=== PATIENT | female | born 1970 | race Asian ===

== ENCOUNTER 2019-01-13 05:30 | Inpatient (IN) | payer SELFPAY ==
[~2019-01-13] VITALS: Ht 165.1 cm; Wt 63.5 kg
[2019-01-13 05:30] VITALS: BP 160/97
--- NOTE | 2019-01-13 05:30 | NUR ---
ED Nurse Note: pt wisam ra 26 per ems pt was on her driveway showing signs of difficulty breathing. on route pt was given albuterol. ermd at bedside, rt at bedside. pt placed on bipap. pt placed on furniture and bedding inspector, placed in gown, bed at lowest position x 2 siderails
--- NOTE | 2019-01-13 05:35 | NUR ---
ED Nurse Note: xray at bedside
--- NOTE | 2019-01-13 05:40 | NUR ---
ED Nurse Note: xray complete
--- NOTE | 2019-01-13 05:42 | Emergency Room Report ---
History of Present Illness General Chief Complaint: Dyspnea/Respdistress Source: Patient, EMS Present Illness HPI 48-year-old female history of asthma history limited secondary to patient's medical condition, collateral history provided by EMS, patient presents with acute shortness of breath that started just prior to arrival she has a history of asthma, unknown aggravating or alleviating factors, patient takes albuterol at home, unknown if she was using at home, severity is severe, Allergies: Coded Allergies: No Known Allergies (Unverified , 01/13/19) Patient History Past Medical History: see triage record Reviewed Nursing Documentation: PMH: Agreed; PSxH: Agreed Nursing Documentation-PMH Past Medical History: No History, Except For Hx Asthma: Yes Review of Systems All Other Systems: limited - acute shortness of breath Physical Exam Vital Signs Date Time Temp Pulse Resp B/P (MAP) Pulse Ox O2 Delivery O2 Flow Rate FiO2 01/13/19 05:28 97.7 97 30 160/72 (101) 98 Room Air Sp02 EP Interpretation: reviewed, normal General Appearance: alert, moderate distress Head: normocephalic, atraumatic Eyes: bilateral eye PERRL, bilateral eye EOMI ENT: uvula midline, moist mucus membranes Neck: supple, thyroid normal, supple/symm/no masses Respiratory: respiratory distress, accessory muscle use, wheezing - severe Cardiovascular #1: normal peripheral pulses, regular rate, rhythm, no edema, no gallop, no murmur Gastrointestinal: non tender, soft, no guarding, no rebound Musculoskeletal: normal inspection Neurologic: alert, oriented x3 Psychiatric: mood/affect normal Skin: no rash, warm/dry Procedures Critical Care Time Critical Care Time Given the critical condition in which the patient arrived, the patient was immediately assessed by myself and the nurse, and cardiac monitoring initiated due to the potential for rapid decompensation of the patient's clinical condition. During the course of the patient's stay, I spent a considerable amount of time at the bedside performing serial re-evaluations of the patient's hemodynamic and clinical status because of the recognized potential threat to life or limb in this condition. I then had a chance to review not only all of the available current laboratory and radiographic studies obtained today, but I also reviewed old records available to me at the time. Additionally, any ancillary information available including wood tank erector records were reviewed. Sequential vital signs were obtained. Critical Care time of 32 minutes was performed exclusive of billable procedures. Patient with acute respiratory distress. Medical Decision Making Diagnostic Impression: Primary Impression: Respiratory distress Additional Impression: COPD with exacerbation ER Course 48-year-old female history of COPD, history of smoking presents with acute shortness of breath, patient unable to speak full sentences using accessory muscles, BiPAP immediately started for acute respiratory distress Duo nebs, steroids, fluids Ceftriaxone azithromycin started for possible pneumonia given sputum production over the past day Reevaluation 6:13 AM, patient slowly improving with BiPAP, will reassess and ABG Reeval 6:35 AM, patient more comfortable Patient admitted to Dr. Dickens Laboratory Tests Test 01/13/19 05:25 01/13/19 06:24 01/13/19 06:40 White Blood Count 15.2 K/UL (4.8-10.8) H Red Blood Count 5.17 M/UL (4.20-5.40) Hemoglobin 15.7 G/DL (12.0-16.0) Hematocrit 46.1 % (37.0-47.0) Mean Corpuscular Volume 89 FL (80-99) Mean Corpuscular Hemoglobin 30.3 PG (27.0-31.0) Mean Corpuscular Hemoglobin Concent 34.0 G/DL (32.0-36.0) Red Cell Distribution Width 11.3 % (11.6-14.8) L Platelet Count 277 K/UL (150-450) Mean Platelet Volume 6.3 FL (6.5-10.1) L Neutrophils (%) (Auto) 81.5 % (45.0-75.0) H Lymphocytes (%) (Auto) 12.4 % (20.0-45.0) L Monocytes (%) (Auto) 4.3 % (1.0-10.0) Eosinophils (%) (Auto) 1.3 % (0.0-3.0) Basophils (%) (Auto) 0.3 % (0.0-2.0) Sodium Level 139 MMOL/L (136-145) Potassium Level 3.6 MMOL/L (3.5-5.1) Chloride Level 104 MMOL/L (98-107) Carbon Dioxide Level 23 MMOL/L (21-32) Anion Gap 12 mmol/L (5-15) Blood Urea Nitrogen 9 mg/dL (7-18) Creatinine 0.5 MG/DL (0.55-1.30) L Estimate Glomerular Filtration Rate > 60 mL/min (>60) Glucose Level 147 MG/DL (74-106) H Calcium Level 8.4 MG/DL (8.5-10.1) L Total Bilirubin 0.5 MG/DL (0.2-1.0) Aspartate Amino Transferase (AST) 22 U/L (15-37) Alanine Aminotransferase (ALT) 23 U/L (12-78) Alkaline Phosphatase 80 U/L (46-116) Troponin I 0.000 ng/mL (0.000-0.056) Pro-B-Type Natriuretic Peptide 72 pg/mL (0-125) Total Protein 7.7 G/DL (6.4-8.2) Albumin 4.0 G/DL (3.4-5.0) Globulin 3.7 g/dL Albumin/Globulin Ratio 1.1 (1.0-2.7) Arterial Blood pH 7.267 (7.350-7.450) Arterial Blood Partial Pressure CO2 44.0 mmHg (35.0-45.0) Arterial Blood Partial Pressure O2 < 45.3 mmHg (75.0-100.0) Arterial Blood HCO3 19.6 mmol/L (22.0-26.0) L Arterial Blood Oxygen Saturation 60.1 % (95-100) *L Arterial Blood Base Excess -7.1 (-2-2) L Abdirashid Test Positive Urine Color Pale yellow Urine Appearance Clear Urine pH 6 (4.5-8.0) Urine Specific [place] 1.020 (1.005-1.035) Urine Protein 4+ (NEGATIVE) H Urine Glucose (UA) 1+ (NEGATIVE) H Urine Ketones 3+ (NEGATIVE) H Urine Blood 4+ (NEGATIVE) H Urine Nitrite Negative (NEGATIVE) Urine Bilirubin Negative (NEGATIVE) Urine Urobilinogen Normal MG/DL (0.0-1.0) Urine Leukocyte Esterase Negative (NEGATIVE) Urine RBC 10-15 /HPF (0 - 2) H Urine WBC 0-2 /HPF (0 - 2) Urine Squamous Epithelial Cells Moderate /LPF (NONE/OCC) H Urine Bacteria Few /HPF (NONE) EKG Diagnostic Results EKG Time: 05:50 EP Interpretation: NSR rate 86 normal axis, no acute st elevations, premature atrial complex Rate: normal Rhythm: NSR ST Segments: no acute changes ASA given to the pt in ED: No Rhythm Strip Diag. Results Rhythm Strip Time: 05:55 EP Interpretation: yes Rate: 84 Rhythm: NSR, other - premature atrial complexes noted Chest X-Ray Diagnostic Results Chest X-Ray Diagnostic Results : Chest X-Ray Ordered: Yes # of Views/Limited/Complete: 1 View Indication: Shortness of Breath EP Interpretation: Yes Interpretation: no consolidation, no effusion, no pneumothorax, no acute cardiopulmonary disease Impression: No acute disease Electronically Signed by: Georgi Solorzano MD Last Vital Signs Date Time Temp Pulse Resp B/P (MAP) Pulse Ox O2 Delivery O2 Flow Rate FiO2 01/13/19 05:28 97.7 97 30 160/72 (101) 98 Room Air Disposition: ADMITTED INPATIENT Condition: Stable Georgi Solorzano MD Jan 13, 2019 05:42
[2019-01-13] MEDS ORDERED: Solu-MEDROL 125mg Inj IVP ONE (05:45)
--- NOTE | 2019-01-13 05:45 | NUR ---
ED Nurse Note: RT at bedside
[2019-01-13] MEDS: Albuterol ud Inhalation HHN SCH ×6 (05:53→06:50)
[2019-01-13] MEDS: Ipratropium 0.02% Inh Soln 2.5ml UD HHN SCH ×6 (05:53→06:50)
[2019-01-13 05:55] LABS: BASOPHILS % (AUTO) 0.3 % (0.0-2.0); EOSINOPHILS % (AUTO) 1.3 % (0.0-3.0); HEMATOCRIT 46.1 % (37.0-47.0); HEMOGLOBIN 15.7 G/DL (12.0-16.0); LYMPHOCYTES % (AUTO) 12.4 % (20.0-45.0); MEAN CORPUSCULAR VOLUME 89 FL (80-99); MONOCYTES % (AUTO) 4.3 % (1.0-10.0); NEUTROPHILS % (AUTO) 81.5 % (45.0-75.0); PLATELET COUNT 277 K/UL (150-450); RED BLOOD COUNT 5.17 M/UL (4.20-5.40); RED CELL DISTRIBUTION WIDTH 11.3 % (11.6-14.8); WHITE BLOOD COUNT 15.2 K/UL (4.8-10.8)
[2019-01-13] MEDS ORDERED: Azithromycin 500 MG in NS 275 ML IV ONE (06:00)
[2019-01-13] MEDS ORDERED: cefTRIAXone 1 GM in NS 55 ML IVPB ONE (06:00)
[2019-01-13 06:22] LABS: ANION GAP 12 mmol/L (5-15); BLOOD UREA NITROGEN 9 mg/dL (7-18); CALCIUM 8.4 MG/DL (8.5-10.1); CARBON DIOXIDE 23 MMOL/L (21-32); CHLORIDE 104 MMOL/L (98-107); CREATININE 0.5 MG/DL (0.55-1.30); POTASSIUM 3.6 MMOL/L (3.5-5.1); SODIUM 139 MMOL/L (136-145)
[2019-01-13 06:33] LABS: ALANINE AMINOTRANSFERASE 23 U/L (12-78); ALBUMIN/GLOBULIN RATIO 1.1 (1.0-2.7); ALKALINE PHOSPHATASE 80 U/L (46-116); ASPARTATE AMINO TRANSFERASE 22 U/L (15-37); BILIRUBIN,TOTAL 0.5 MG/DL (0.2-1.0)
[2019-01-13 06:55] LABS: APPEARANCE,URINE CLEAR; BILIRUBIN, URINE NEGATIVE (NEGATIVE); COLOR,URINE PALE YELLOW; GLUCOSE, URINE (UA) 1+ (NEGATIVE); KETONES,URINE 3+ (NEGATIVE); LEUKOCYTE ESTERASE ,URINE NEGATIVE (NEGATIVE); NITRITE,URINE NEGATIVE (NEGATIVE); PH,URINE 6 (4.5-8.0); PROTEIN,URINE 4+ (NEGATIVE); UROBILINOGEN,URINE NORMAL MG/DL (0.0-1.0)
--- NOTE | 2019-01-13 07:12 | NUR ---
HAND-OFF: Report given to KAVITHA Griffiths.
--- NOTE | 2019-01-13 07:13 | NUR ---
ED Nurse Note: received patient from Jazlyn Mas, vitals stable.
[2019-01-13 07:20] VITALS: BP 120/78
--- NOTE | 2019-01-13 08:21 | Diagnostic Imaging Report ---
EXAM: XR Chest, 1 View CLINICAL HISTORY: SOB TECHNIQUE: Frontal view of the chest. COMPARISON: No relevant prior studies available. FINDINGS: Lungs: Unremarkable. No consolidation. Pleural space: Unremarkable. No pneumothorax. Heart: Unremarkable. No cardiomegaly. Mediastinum: Unremarkable. Bones/joints: Unremarkable. Upper abdomen: Gassy stomach or bowel in the upper abdomen. IMPRESSION: 1. No acute cardiothoracic process. 2. Gassy stomach or bowel in the upper abdomen.
[2019-01-13] MEDS ORDERED: UNOBMED (08:23)
--- NOTE | 2019-01-13 08:30 | NUR ---
ED Nurse Note: report given to Roro PLUMMER, endorsed all plan of care to Roro PLUMMER. patient is being transferred with all of her belongings in stable condition,
--- NOTE | 2019-01-13 08:35 | NUR ---
NURSE NOTES: Received patient fro ED. Transferred to child monitor bed with 1 staff assist, patient is able to move with minimal assistance. Patient is currently on bipap. Call light within reach. Denies any pain at this time. Belonging list checked with ED nurse. Cellphone at bedside, with no artist and repertoire manager. Patient is alert, able to make needs known. Patient stated that she's using her brother's albuterol inhaler at home. Will admit to SDU standard level of care. Skin is intact. Oxygen saturation noted at 98%.
[2019-01-13 09:00] VITALS: BP 126/72
[2019-01-13] MEDS: Albuterol/Ipratropium 3ml neb HHN SCH ×4 (10:42→22:56)
--- NOTE | 2019-01-13 11:00 | NUR ---
NURSE NOTES: Placed patient on nasal cannula at 2LPM. Will monitor her oxygen level. Current oxygen saturation is 98%.
--- NOTE | 2019-01-13 11:30 | NUR ---
NURSE NOTES: Patient ambulated to bathroom. Voids, with yellow urine noted in the toilet.
[2019-01-13 12:00] VITALS: BP 138/79
[2019-01-13 16:00] VITALS: BP 115/76
[2019-01-13] MEDS ORDERED: LORazepam Inj 2mg/ml 1ml IV PRN (17:30)
[2019-01-13] MEDS ORDERED: Nitroglycerin Subl 0.4mg tab SL PRN (17:30)
[2019-01-13] MEDS ORDERED: Morphine Sulfate 4mg/ml Inj (IV USE ONLY) IVP PRN (17:30)
[2019-01-13] MEDS ORDERED: Morphine Sulfate 2mg/ml Inj(IV/IM USE ONLY) IVP PRN ×2 (17:30→17:45)
[2019-01-13] MEDS ORDERED: Albuterol/Ipratropium 3ml neb HHN PRN ×2 (17:30)
--- NOTE | 2019-01-13 17:30 | History and Physical Report ---
DATE OF ADMISSION: 01/13/2019 TIME SEEN: 8 a.m. AERIAL LINEMAN: Aye Schmidt M.D. CHIEF COMPLAINT: Shortness of breath, COPD exacerbation. BRIEF HISTORY: This is a 48-year-old female, who lives at home with several days of increased shortness of breath, came to [place] this morning with COPD exacerbation diagnosis, and admitted to step-down unit. Currently sleepy, O2 mask in place, not talking much. REVIEW OF SYSTEMS: Unavailable. PAST MEDICAL HISTORY: COPD and asthma. PAST SURGICAL HISTORY: None. ALLERGIES: Denies. MEDICATIONS: Include ceftriaxone, azithromycin, albuterol and ipratropium, and methylprednisolone. SOCIAL HISTORY: Positive smoke. No alcohol. No intravenous drug abuse. FAMILY HISTORY: Noncontributory. PHYSICAL EXAMINATION: GENERAL: Sleepy in bed, not responding to questions. VITAL SIGNS: Temperature is 97 degrees, pulse 82, respirations 17, and blood pressure 120/78. CARDIOVASCULAR: No murmur. LUNGS: Poor air exchange. ABDOMEN: Bowel sounds distant. EXTREMITIES: No cyanosis or edema. NEUROLOGIC: The patient is flaccid in bed, does not want to follow directions. LABORATORY AND DIAGNOSTIC DATA: White count 15, otherwise CBC is normal. BMP show creatinine 0.5, glucose 147. Urinalysis show 3+ ketones, 4+ protein. ASSESSMENT: 1. COPD exacerbation. 2. Leukocytosis. 3. Diabetes. 4. Asthma. PLAN: 1. O2 and pulmonary treatment. 2. Antibiotics per Infectious Disease. 3. Blood pressure and blood sugar control. 4. Dietary followup. 5. Taper off steroids. Aditya Dickens D.O. DR: GILMAR JOB#: [id number] CC:
--- NOTE | 2019-01-13 17:50 | Consultation ---
History of Present Illness General Date patient seen: Jan 13, 2019 Chief Complaint: Dyspnea/Respdistress Present Illness HPI 48 y/o F with hx of asthma/COPD, tobacco abuse, diabetes presented to ED on 01/13 with acute SOB. Allergies: Coded Allergies: No Known Allergies (Unverified , 01/13/19) Medication History Miscellaneous Medications Unable to Obtain Medications (Unable To Obtain Meds), (Reported) Patient History Healthcare decision maker self Resuscitation status Full Code Advanced Directive on File Patient History Narrative Pmhx: as above Shx: Positive smoke. No alcohol. No intravenous drug abuse. Fhx: non contributory Review of Systems All Other Systems: negative except mentioned in HPI Physical Exam Physical Exam Narrative GENERAL: Sleepy in bed, not responding to questions. CARDIOVASCULAR: No murmur. LUNGS: Poor air exchange. ABDOMEN: Bowel sounds distant. EXTREMITIES: No cyanosis or edema. NEUROLOGIC: The patient is flaccid in bed, does not want to follow directions. Last 24 Hour Vital Signs Date Time Temp Pulse Resp B/P (MAP) Pulse Ox O2 Delivery O2 Flow Rate FiO2 01/13/19 16:00 Nasal Cannula 2.0 01/13/19 16:00 97.9 88 23 115/76 (89) 98 01/13/19 15:30 88 01/13/19 15:29 82 20 99 Nasal Cannula 2.0 28 01/13/19 15:15 78 18 98 Nasal Cannula 2.0 28 01/13/19 12:00 97.9 87 20 138/79 (98) 97 01/13/19 12:00 Nasal Cannula 2.0 01/13/19 11:47 82 01/13/19 11:11 Bi-pap 01/13/19 11:01 2.0 01/13/19 11:00 21 01/13/19 10:49 77 20 100 Bi-Pap 21 01/13/19 10:42 80 20 100 Facial 21 01/13/19 10:40 80 20 100 Bi-Pap 21 01/13/19 09:20 80 23 100 Facial 25 01/13/19 09:00 97.6 79 25 126/72 (90) 99 01/13/19 09:00 Bi-pap 01/13/19 08:38 81 01/13/19 08:30 97.7 82 17 120/78 100 Bi-pap 25 01/13/19 07:20 97.7 82 17 120/78 100 Bi-pap 01/13/19 06:52 88 22 100 Bi-Pap 25 01/13/19 06:50 88 22 100 Facial 25 01/13/19 06:21 81 19 99 Bi-Pap 25 01/13/19 06:01 88 24 99 Bi-Pap 40 01/13/19 05:56 86 25 100 Facial 40 01/13/19 05:55 96 28 99 Bi-Pap 40 01/13/19 05:54 96 28 96 Bi-Pap 40 01/13/19 05:30 105 30 Bi-pap 100 01/13/19 05:30 97.7 105 30 160/97 100 Room Air 01/13/19 05:28 97.7 97 30 160/72 (101) 98 Room Air Intake and Output 01/12/19 01/13/19 19:00 07:00 Intake Total 830 ml Output Total 0 ml Balance 830 ml Intake IV Total 830 ml Output Urine Total 0 ml Laboratory Tests Test 01/13/19 05:25 01/13/19 06:24 01/13/19 06:40 01/13/19 12:39 White Blood Count 15.2 K/UL (4.8-10.8) H Red Blood Count 5.17 M/UL (4.20-5.40) Hemoglobin 15.7 G/DL (12.0-16.0) Hematocrit 46.1 % (37.0-47.0) Mean Corpuscular Volume 89 FL (80-99) Mean Corpuscular Hemoglobin 30.3 PG (27.0-31.0) Mean Corpuscular Hemoglobin Concent 34.0 G/DL (32.0-36.0) Red Cell Distribution Width 11.3 % (11.6-14.8) L Platelet Count 277 K/UL (150-450) Mean Platelet Volume 6.3 FL (6.5-10.1) L Neutrophils (%) (Auto) 81.5 % (45.0-75.0) H Lymphocytes (%) (Auto) 12.4 % (20.0-45.0) L Monocytes (%) (Auto) 4.3 % (1.0-10.0) Eosinophils (%) (Auto) 1.3 % (0.0-3.0) Basophils (%) (Auto) 0.3 % (0.0-2.0) Sodium Level 139 MMOL/L (136-145) Potassium Level 3.6 MMOL/L (3.5-5.1) Chloride Level 104 MMOL/L (98-107) Carbon Dioxide Level 23 MMOL/L (21-32) Anion Gap 12 mmol/L (5-15) Blood Urea Nitrogen 9 mg/dL (7-18) Creatinine 0.5 MG/DL (0.55-1.30) L Estimat Glomerular Filtration Rate > 60 mL/min (>60) Glucose Level 147 MG/DL (74-106) H Calcium Level 8.4 MG/DL (8.5-10.1) L Total Bilirubin 0.5 MG/DL (0.2-1.0) Aspartate Amino Transf (AST/SGOT) 22 U/L (15-37) Alanine Aminotransferase (ALT/SGPT) 23 U/L (12-78) Alkaline Phosphatase 80 U/L (46-116) Troponin I 0.000 ng/mL (0.000-0.056) Pro-B-Type Natriuretic Peptide 72 pg/mL (0-125) Total Protein 7.7 G/DL (6.4-8.2) Albumin 4.0 G/DL (3.4-5.0) Globulin 3.7 g/dL Albumin/Globulin Ratio 1.1 (1.0-2.7) Arterial Blood pH 7.267 (7.350-7.450) 7.342 (7.350-7.450) Arterial Blood Partial Pressure CO2 44.0 mmHg (35.0-45.0) 39.1 mmHg (35.0-45.0) Arterial Blood Partial Pressure O2 < 45.3 mmHg (75.0-100.0) 47.1 mmHg (75.0-100.0) Arterial Blood HCO3 19.6 mmol/L (22.0-26.0) L 20.8 mmol/L (22.0-26.0) L Arterial Blood Oxygen Saturation 60.1 % (95-100) *L 83.2 % (95-100) *L Arterial Blood Base Excess -7.1 (-2-2) L -4.5 (-2-2) L Abdirashid Test Positive Positive Urine Color Pale yellow Urine Appearance Clear Urine pH 6 (4.5-8.0) Urine Specific [place] 1.020 (1.005-1.035) Urine Protein 4+ (NEGATIVE) H Urine Glucose (UA) 1+ (NEGATIVE) H Urine Ketones 3+ (NEGATIVE) H Urine Blood 4+ (NEGATIVE) H Urine Nitrite Negative (NEGATIVE) Urine Bilirubin Negative (NEGATIVE) Urine Urobilinogen Normal MG/DL (0.0-1.0) Urine Leukocyte Esterase Negative (NEGATIVE) Urine RBC 10-15 /HPF (0 - 2) H Urine WBC 0-2 /HPF (0 - 2) Urine Squamous Epithelial Cells Moderate /LPF (NONE/OCC) H Urine Bacteria Few /HPF (NONE) Height (Feet): 5 Height (Inches): 5.00 Weight (Pounds): 125 Medications Current Medications Medications (Trade) Dose Ordered Sig/[place]hell Route PRN Reason Start Time Stop Time Status Last Admin Dose Admin Albuterol/ Ipratropium (Albuterol/ Ipratropium) 3 ml Q4H PRN HHN Shortness of Breath 01/13/19 17:30 01/18/19 17:29 Albuterol/ Ipratropium (Albuterol/ Ipratropium) 3 ml Q4HRT HHN 01/13/19 11:00 01/18/19 10:59 01/13/19 15:38 Dextrose (Dextrose 50%) STAT PRN IV Hypoglycemia 01/13/19 17:30 02/12/19 17:29 Dextrose/Sodium Chloride 1,000 ml @ 50 mls/hr Q20H IV 01/13/19 18:00 02/12/19 17:59 Insulin Aspart (NovoLOG) BEFORE MEALS AND HS SUBQ 01/13/19 21:00 02/12/19 20:59 Lorazepam (Ativan 2mg/ml 1ml) 2 mg Q4H PRN IV For Anxiety 01/13/19 17:30 01/20/19 17:29 Methylprednisolone Sodium Succinate (Solu-MEDROL) 60 mg EVERY 6 HOURS IV 01/13/19 18:00 02/12/19 17:59 Morphine Sulfate (Morphine Sulfate) 2 mg Q4H PRN IVP Moderate Pain (Pain Scale 4-6) 01/13/19 17:45 01/20/19 17:29 Morphine Sulfate (Morphine Sulfate) 4 mg Q4H PRN IVP Severe Pain (Pain Scale 7-10) 01/13/19 17:30 01/20/19 17:29 Nitroglycerin (Ntg) 0.4 mg Q5M X 3 DOSES PRN SL Prn Chest Pain 01/13/19 17:30 02/12/19 17:29 Ondansetron HCl (Zofran) 4 mg Q6H PRN IVP Nausea & Vomiting 01/13/19 17:30 02/12/19 17:29 Pantoprazole (Protonix) 40 mg DAILY IV 01/14/19 09:00 02/13/19 08:59 Piperacillin Sod/ Tazobactam Sod 3.375 gm/Dextrose 110 ml @ 27.5 mls/hr EVERY 8 HOURS IVPB 01/13/19 22:00 01/20/19 21:59 Assessment/Plan Assessment/Plan: Abx: Ceftriaxone x1 01/13 Azithromycin x1 01/13 Assessment: COPD exacerbation -CXR: 1. No acute cardiothoracic process. Gassy stomach or bowel in the upper abdomen. Afebrile Mild leukocytosis -u/a no pyuria, +hematuria asthma/COPD tobacco abuse diabetes Plan: -Start Levaquin for COPD exacerbation -f/u cx -Monitor CBC/BMP, temperatures -respiratory supportive treatment -aspiration precautions Thank you for this consultation. Will continue to follow along with you. Discussed with Maria Isabel Carrington M.D. Jan 13, 2019 17:50
[2019-01-13] MEDS ORDERED: D5 1/2NS 1,000 ML IV SCH (18:00)
[2019-01-13] MEDS: Solu-MEDROL 125mg Inj IV SCH (18:09)
--- NOTE | 2019-01-13 18:11 | NUR ---
CASE MANAGEMENT: REVIEW 48Y/F PRESENTED TO ED FROM HOME CC: RESP DISTRESS SI: COPD EXACERBATION T 97.7 HR 105 RR 30 BP 160/97 SAT 100% BIPAP FIO2 100 WBC 15.2 ABG: PH 7.267 PO2 <45.3 HCO3 19.6 O2 SAT 60.1 IS: NS IVF BOLUS X1 ATROVENT HHN X1 ALBUTEROL HHN X1 SOLU MEDROL IV X1 AZITHROMYCIN IV X1 CEFTRIAXONE IV X1 PATIENT ADMITTED TO STEP DOWN UNIT 01/13/2019 DCP: PATIENT IS FROM HOME
--- NOTE | 2019-01-13 19:32 | NUR ---
HAND-OFF: Report given to Angely Boyd RN.
--- NOTE | 2019-01-13 19:33 | NUR ---
NURSE NOTES: Received bedside report from KAVITHA Read.Patient stable,in a bed,A&O x4,no c/o pain,no respiratory distress noted at this moment,tolerated N/C with 2 L/min well,BS active in all quadrants,IV asymptomatic,intact on R AC G 20 running with D 5 1/2 NS @ 50 ml/hr and L wrist G 20 SL, bed secured in a low safety position,call light within a reach.Will continue to monitor and follow POC.
[2019-01-13 20:00] VITALS: BP 138/86
--- NOTE | 2019-01-13 20:16 | NUR ---
HAND-OFF: Report given to KAVITHA Quiroga.Patient stable.
--- NOTE | 2019-01-13 20:17 | NUR ---
NURSE NOTES: Received patient from Angely PLUMMER. Patient is alert and oriented X4 with no signs of distress. Pt is well groomed, and clean. Pt in bed and resting with IV patent and intact. Bed at its lowest position, call light in reach and X 3 bed rails are up.
[2019-01-13] MEDS ORDERED: Heparin 5000 units/ml inj SUBQ SCH ×2 (21:00)
[2019-01-13] MEDS ORDERED: NovoLOG Insulin Flexpen SUBQ SCH (21:00)
[2019-01-13] MEDS ORDERED: Piperacillin/Tazobactam 3.375 GM in D5W 110 ML IVPB SCH (22:00)
[2019-01-14] VITALS: BP 121/68
[2019-01-14] MEDS: Solu-MEDROL 125mg Inj IV SCH ×4 (00:55→17:38)
[2019-01-14 03:30] VITALS: BP 117/67
[2019-01-14] MEDS ORDERED: Nitroglycerin Subl 0.4mg tab SL PRN (03:30)
[2019-01-14] MEDS ORDERED: Morphine Sulfate 4mg/ml Inj (IV USE ONLY) IVP PRN (03:30)
[2019-01-14] MEDS ORDERED: Morphine Sulfate 2mg/ml Inj(IV/IM USE ONLY) IVP PRN (03:30)
[2019-01-14] MEDS ORDERED: LORazepam Inj 2mg/ml 1ml IV PRN (03:30)
--- NOTE | 2019-01-14 03:30 | NUR ---
HAND-OFF: Report given to Cristi PLUMMER.
--- NOTE | 2019-01-14 03:30 | NUR ---
HAND-OFF: Report given to Cristi PLUMMER.
[2019-01-14] MEDS: D5 1/2NS 1,000 ML IV SCH ×2 (03:46→14:03)
--- NOTE | 2019-01-14 04:11 | NUR ---
NURSE/TRANSFER NOTE: Ms. Cameron was transferred at approximately 0330 from [facility]. Report received from KAVITHA Quiroga. Pt VSS but presented with a productive cough. Tx administered by RT and pt is now resting with no signs of distress. Orders reviewed and belongings accounted for with RN. Pt verbalized understanding of fall precautions and call zambrano usage. Pt is on continuos O2 monitoring and is on 2L NC. Will continue to monitor. Addendum: 01/14/19 at 0431 by Kaur Sullivan RN Side rails x2 up on pt bed. Wheezing heard on auscultation of anterior upper and lower lungs. Skin is intact. IV x2 are patent and intact.
[2019-01-14] MEDS ORDERED: Albuterol/Ipratropium 3ml neb HHN PRN (05:30)
[2019-01-14] MEDS: NovoLOG Insulin Flexpen SUBQ SCH ×4 (06:29→21:56)
--- NOTE | 2019-01-14 07:29 | NUR ---
HAND-OFF: Report given to KAVITHA Flores.
[2019-01-14] MEDS: Albuterol/Ipratropium 3ml neb HHN SCH ×5 (07:33→23:15)
--- NOTE | 2019-01-14 07:40 | NUR ---
NURSE NOTES: Received report from KAVITHA Colin. Rounding done with outgoing nurse. Pt is a/o x 4, in bed. No respiratory distress noted. Denies pain at this time. Lt wrist is patetn, regular IV is running okay. Bed in lowest position, call light within reach. Will continue to monitor.
[2019-01-14 07:41] LABS: HEMATOCRIT 40.1 % (37.0-47.0); HEMOGLOBIN 13.7 G/DL (12.0-16.0); MEAN CORPUSCULAR VOLUME 90 FL (80-99); PLATELET COUNT 283 K/UL (150-450); RED BLOOD COUNT 4.46 M/UL (4.20-5.40); RED CELL DISTRIBUTION WIDTH 11.8 % (11.6-14.8); WHITE BLOOD COUNT 19.2 K/UL (4.8-10.8)
[2019-01-14 08:00] VITALS: BP 113/74
[2019-01-14 08:22] LABS: ALANINE AMINOTRANSFERASE 14 U/L (12-78); ALBUMIN 3.4 G/DL (3.4-5.0); ALBUMIN/GLOBULIN RATIO 0.9 (1.0-2.7); ALKALINE PHOSPHATASE 68 U/L (46-116); ANION GAP 11 mmol/L (5-15); ASPARTATE AMINO TRANSFERASE 13 U/L (15-37); BILIRUBIN,TOTAL 0.3 MG/DL (0.2-1.0); BLOOD UREA NITROGEN 12 mg/dL (7-18); CALCIUM 8.7 MG/DL (8.5-10.1); CARBON DIOXIDE 24 MMOL/L (21-32); CHLORIDE 104 MMOL/L (98-107); CREATININE 0.6 MG/DL (0.55-1.30); SODIUM 139 MMOL/L (136-145)
[2019-01-14] MEDS ORDERED: Levofloxacin 500mg tab ORAL SCH (09:00)
[2019-01-14] MEDS ORDERED: Pantoprazole Inj IV SCH ×2 (09:00)
[2019-01-14] MEDS: Levofloxacin 500mg tab ORAL SCH (09:06)
--- NOTE | 2019-01-14 10:51 | NUR ---
NURSE NOTES: Dr. Schmidt ordered phenergen codein 5cc q6 prn. Noted and carried out.
--- NOTE | 2019-01-14 10:54 | NUR ---
RD ASSESSMENT & RECOMMENDATIONS SEE CARE ACTIVITY FOR COMPLETE ASSESSMENT DAILY ESTIMATED NEEDS: Needs based on Pulmonary, 57kg 25-30 kcals/kg 6295-6981 total kcals 1-1.5 g protein/kg 57-86 g total protein 25-30 mL/kg 6632-1664 total fluid mLs NUTRITION DIAGNOSIS: Altered nutrition related lab values R/T diabetes as evidenced by elev BGs (162, 147), pt also on solumedrol. CURRENT DIET:REGULAR PO DIET RECOMMENDATIONS: CCHO MED ADDITIONAL RECOMMENDATIONS: * Standing wt for accurate CBW * Monitor BGs closely: h/o DM + steroidal med + on D5 IVF * Monitor lytes, replete as needed (low K) Addendum: 01/14/19 at [address] * Check A1C for eval of glycemic control
[2019-01-14] MEDS ORDERED: NS 275ml ONE (10:59)
[2019-01-14] MEDS: Promethazine/Codeine 5ml UD ORAL PRN (11:07)
--- NOTE | 2019-01-14 11:10 | NUR ---
PT EVALUATION NOTE Patient seen for initial evaluation, see complete evaluation for details. Patient presents with generalized weakness and SOB with activity. Patient declined OOB activities due to increased coughing with mobility. Patient will benefit from skilled inpatient PT intervention to address strength, balance and ambulation with proper breathing techniques. Anticipate discharge home once medically cleared by MD. No DME needs anticipated at this time. Addendum: 01/14/19 at 1226 by JENY APARICIO PT Amended: Links added.
--- NOTE | 2019-01-14 11:26 | NUR ---
RADIOLOGY DEPT., CHEST X-RAY DONE.-P.DYE
[2019-01-14 12:00] VITALS: BP 117/73
--- NOTE | 2019-01-14 12:23 | NUR ---
NURSE NOTES: Dr. Dickens ordered ambulatory for DVT, Diabetic diet 1800kcal, kcl 40meq x1, cbc,bmp tomorrow morning. Noted and carried out.
--- NOTE | 2019-01-14 12:40 | General Progress Note ---
Assessment/Plan Problem List: (1) Respiratory distress ICD Codes: R06.03 - Acute respiratory distress SNOMED: 900239839 (2) COPD with exacerbation ICD Codes: J44.1 - Chronic obstructive pulmonary disease with (acute) exacerbation SNOMED: 661665190 (3) Infection ICD Codes: B99.9 - Unspecified infectious disease SNOMED: 29635201 Status: stable, progressing Assessment/Plan: o2 pyul tx abx cbc bmp am Subjective Constitutional: Reports: weakness Respiratory: Reports: shortness of breath Allergies: Coded Allergies: No Known Allergies (Unverified , 01/13/19) All Systems: reviewed and negative except above Subjective o2nc sl anxious Objective Last 24 Hour Vital Signs Date Time Temp Pulse Resp B/P (MAP) Pulse Ox O2 Delivery O2 Flow Rate FiO2 01/14/19 11:16 99 22 100 Nasal Cannula 2.0 01/14/19 11:07 98 22 97 Nasal Cannula 2.0 01/14/19 09:00 Nasal Cannula 2.0 01/14/19 08:00 98.2 105 18 113/74 (87) 96 01/14/19 07:34 98 20 99 Nasal Cannula 2.0 01/14/19 07:34 98 22 98 Nasal Cannula 2.0 01/14/19 07:25 97 18 98 Nasal Cannula 2.0 01/14/19 03:30 98.5 78 18 117/67 (84) 96 01/14/19 02:39 Nasal Cannula 2.0 01/14/19 02:38 Nasal Cannula 2.0 01/14/19 00:00 98.3 92 18 121/68 (85) 94 01/14/19 00:00 89 01/14/19 00:00 Nasal Cannula 2.0 01/13/19 23:06 88 18 99 Nasal Cannula 2.0 01/13/19 22:56 93 18 96 Nasal Cannula 2.0 01/13/19 20:00 98.4 98 20 138/86 (103) 96 01/13/19 20:00 Nasal Cannula 2.0 01/13/19 19:45 98 01/13/19 19:19 97 20 99 Nasal Cannula 2.0 01/13/19 19:13 99 20 99 Nasal Cannula 2.0 01/13/19 19:11 99 20 97 Nasal Cannula 2.0 28 01/13/19 16:00 Nasal Cannula 2.0 01/13/19 16:00 97.9 88 23 115/76 (89) 98 01/13/19 15:30 88 01/13/19 15:29 82 20 99 Nasal Cannula 2.0 28 01/13/19 15:15 78 18 98 Nasal Cannula 2.0 28 Intake and Output 01/13/19 01/14/19 18:59 06:59 Intake Total 120 ml 400 ml Balance 120 ml 400 ml Intake Oral 120 ml IV Total 400 ml # Voids 2 Laboratory Tests 01/13/19 17:50: Arterial Blood pH 7.435, Arterial Blood Partial Pressure CO2 33.1L, Arterial Blood Partial Pressure O2 71.9L, Arterial Blood HCO3 21.7L, Arterial Blood Oxygen Saturation 94.7L, Arterial Blood Base Excess -1.6, Abdirashid Test Positive 01/14/19 05:43: White Blood Count 19.2H, Red Blood Count 4.46, Hemoglobin 13.7, Hematocrit 40.1 , Mean Corpuscular Volume 90, Mean Corpuscular Hemoglobin 30.8, Mean Corpuscular Hemoglobin Concent 34.2, Red Cell Distribution Width 11.8, Platelet Count 283, Mean Platelet Volume 6.1L, Neutrophils (%) (Auto) , Lymphocytes (%) ( Auto) , Monocytes (%) (Auto) , Eosinophils (%) (Auto) , Basophils (%) (Auto) , Differential Total Cells Counted 100, Neutrophils % (Manual) 95H, Lymphocytes % (Manual) 4L, Monocytes % (Manual) 1, Eosinophils % (Manual) 0, Basophils % ( Manual) 0, Band Neutrophils 0, Platelet Estimate Adequate, Platelet Morphology Normal, Red Blood Cell Morphology Normal, Erythrocyte Sedimentation Rate 11, Sodium Level 139, Potassium Level 3.0L, Chloride Level 104, Carbon Dioxide Level 24, Anion Gap 11, Blood Urea Nitrogen 12, Creatinine 0.6, Estimat Glomerular Filtration Rate > 60, Glucose Level 162H, Calcium Level 8.7, Phosphorus Level 3.0, Magnesium Level 2.5H, Total Bilirubin 0.3, Aspartate Amino Transf (AST/SGOT) 13L, Alanine Aminotransferase (ALT/SGPT) 14, Alkaline Phosphatase 68, C-Reactive Protein, Quantitative 1.2H, Total Protein 7.0, Albumin 3.4, Globulin 3.6, Albumin/Globulin Ratio 0.9L Height (Feet): 5 Height (Inches): 5.00 Weight (Pounds): 125 General Appearance: lethargic EENT: normal ENT inspection Neck: normal alignment Cardiovascular: normal peripheral pulses, normal rate, regular rhythm Respiratory/Chest: chest wall non-tender, lungs clear, normal breath sounds Abdomen: normal bowel sounds, non tender, soft Extremities: normal inspection Edema: no edema noted Arm (L), no edema noted Arm (R), no edema noted Leg (L), no edema noted Leg (R), no edema noted Pedal (L), no edema noted Pedal (R), no edema noted Generalized Neurologic: responsive, motor weakness Skin: normal pigmentation, warm/dry Aditya Dickens DO Jan 14, 2019 12:40
--- NOTE | 2019-01-14 12:57 | Diagnostic Imaging Report ---
Indication: Dyspnea Comparison: 01/13/2019 A single view chest radiograph was obtained. Findings: Cardiomediastinal appearance is within normal limits for age. The lungs are clear. Pulmonary vascularity is appropriate. The diaphragmatic contour is smooth and costophrenic angles are sharp. No pleural effusions are identified. The bones are unremarkable. Impression: No acute findings
--- NOTE | 2019-01-14 14:43 | Infectious Diseases Prog Note ---
Assessment/Plan Assessment/Plan Assessment: COPD exacerbation -01/14 CXR: no acute findings -CXR: 1. No acute cardiothoracic process. Gassy stomach or bowel in the upper abdomen. Afebrile Leukocytosis; increased (on high dose steroids) -u/a no pyuria, +hematuria asthma/COPD tobacco abuse diabetes Plan: -Cont Levaquin #2/3-5 for COPD exacerbation -01/13 SP Ceftriaxone x1, Azithromycin x1 -f/u cx -Monitor CBC/BMP, temperatures -respiratory supportive treatment -aspiration precautions Thank you for this consultation. Will continue to follow along with you. Discussed with RN. Subjective Allergies: Coded Allergies: No Known Allergies (Unverified , 01/13/19) Subjective afebrile wbc increased on high dose steroids Objective Vital Signs Last 24 Hour Vital Signs Date Time Temp Pulse Resp B/P (MAP) Pulse Ox O2 Delivery O2 Flow Rate FiO2 01/14/19 12:00 97.6 104 20 117/73 (88) 98 01/14/19 11:16 99 22 100 Nasal Cannula 2.0 28 01/14/19 11:07 98 22 97 Nasal Cannula 2.0 28 01/14/19 09:00 Nasal Cannula 2.0 01/14/19 08:00 98.2 105 18 113/74 (87) 96 01/14/19 07:34 98 20 99 Nasal Cannula 2.0 28 01/14/19 07:34 98 22 98 Nasal Cannula 2.0 28 01/14/19 07:25 97 18 98 Nasal Cannula 2.0 28 01/14/19 03:30 98.5 78 18 117/67 (84) 96 01/14/19 02:39 Nasal Cannula 2.0 28 01/14/19 02:38 Nasal Cannula 2.0 28 01/14/19 00:00 98.3 92 18 121/68 (85) 94 01/14/19 00:00 89 01/14/19 00:00 Nasal Cannula 2.0 01/13/19 23:06 88 18 99 Nasal Cannula 2.0 28 01/13/19 22:56 93 18 96 Nasal Cannula 2.0 28 01/13/19 20:00 98.4 98 20 138/86 (103) 96 01/13/19 20:00 Nasal Cannula 2.0 01/13/19 19:45 98 01/13/19 19:19 97 20 99 Nasal Cannula 2.0 01/13/19 19:13 99 20 99 Nasal Cannula 2.0 28 01/13/19 19:11 99 20 97 Nasal Cannula 2.0 01/13/19 16:00 Nasal Cannula 2.0 01/13/19 16:00 97.9 88 23 115/76 (89) 98 01/13/19 15:30 88 01/13/19 15:29 82 20 99 Nasal Cannula 2.0 28 01/13/19 15:15 78 18 98 Nasal Cannula 2.0 28 Height (Feet): 5 Height (Inches): 5.00 Weight (Pounds): 125 Objective GENERAL: Sleepy in bed, not responding to questions. CARDIOVASCULAR: No murmur. LUNGS: Poor air exchange. ABDOMEN: Bowel sounds distant. EXTREMITIES: No cyanosis or edema. NEUROLOGIC: The patient is flaccid in bed, does not want to follow directions. Laboratory Tests Test 01/13/19 17:50 01/14/19 05:43 Arterial Blood pH 7.435 (7.350-7.450) Arterial Blood Partial Pressure CO2 33.1 mmHg (35.0-45.0) L Arterial Blood Partial Pressure O2 71.9 mmHg (75.0-100.0) L Arterial Blood HCO3 21.7 mmol/L (22.0-26.0) L Arterial Blood Oxygen Saturation 94.7 % (95-100) L Arterial Blood Base Excess -1.6 (-2-2) Abdirashid Test Positive White Blood Count 19.2 K/UL (4.8-10.8) H Red Blood Count 4.46 M/UL (4.20-5.40) Hemoglobin 13.7 G/DL (12.0-16.0) Hematocrit 40.1 % (37.0-47.0) Mean Corpuscular Volume 90 FL (80-99) Mean Corpuscular Hemoglobin 30.8 PG (27.0-31.0) Mean Corpuscular Hemoglobin Concent 34.2 G/DL (32.0-36.0) Red Cell Distribution Width 11.8 % (11.6-14.8) Platelet Count 283 K/UL (150-450) Mean Platelet Volume 6.1 FL (6.5-10.1) L Neutrophils (%) (Auto) % (45.0-75.0) Lymphocytes (%) (Auto) % (20.0-45.0) Monocytes (%) (Auto) % (1.0-10.0) Eosinophils (%) (Auto) % (0.0-3.0) Basophils (%) (Auto) % (0.0-2.0) Differential Total Cells Counted 100 Neutrophils % (Manual) 95 % (45-75) H Lymphocytes % (Manual) 4 % (20-45) L Monocytes % (Manual) 1 % (1-10) Eosinophils % (Manual) 0 % (0-3) Basophils % (Manual) 0 % (0-2) Band Neutrophils 0 % (0-8) Platelet Estimate Adequate Platelet Morphology Normal Red Blood Cell Morphology Normal Erythrocyte Sedimentation Rate 11 MM/HR (0-20) Sodium Level 139 MMOL/L (136-145) Potassium Level 3.0 MMOL/L (3.5-5.1) L Chloride Level 104 MMOL/L (98-107) Carbon Dioxide Level 24 MMOL/L (21-32) Anion Gap 11 mmol/L (5-15) Blood Urea Nitrogen 12 mg/dL (7-18) Creatinine 0.6 MG/DL (0.55-1.30) Estimat Glomerular Filtration Rate > 60 mL/min (>60) Glucose Level 162 MG/DL (74-106) H Calcium Level 8.7 MG/DL (8.5-10.1) Phosphorus Level 3.0 MG/DL (2.5-4.9) Magnesium Level 2.5 MG/DL (1.8-2.4) H Total Bilirubin 0.3 MG/DL (0.2-1.0) Aspartate Amino Transf (AST/SGOT) 13 U/L (15-37) L Alanine Aminotransferase (ALT/SGPT) 14 U/L (12-78) Alkaline Phosphatase 68 U/L (46-116) C-Reactive Protein, Quantitative 1.2 mg/dL (0.00-0.90) H Total Protein 7.0 G/DL (6.4-8.2) Albumin 3.4 G/DL (3.4-5.0) Globulin 3.6 g/dL Albumin/Globulin Ratio 0.9 (1.0-2.7) L Current Medications Medications (Trade) Dose Ordered Sig/Lashell Route PRN Reason Start Time Stop Time Status Last Admin Dose Admin Albuterol/ Ipratropium (Albuterol/ Ipratropium) 3 ml Q4H PRN HHN Shortness of Breath 01/14/19 05:30 01/18/19 17:29 Albuterol/ Ipratropium (Albuterol/ Ipratropium) 3 ml Q4HRT HHN 01/14/19 07:00 01/18/19 10:59 01/14/19 11:15 Dextrose (Dextrose 50%) STAT PRN IV Hypoglycemia 01/14/19 03:30 02/12/19 03:29 Dextrose/Sodium Chloride 1,000 ml @ 50 mls/hr Q20H IV 01/14/19 03:30 02/12/19 17:59 01/14/19 14:03 Insulin Aspart (NovoLOG) BEFORE MEALS AND HS SUBQ 01/14/19 06:30 02/12/19 20:59 01/14/19 12:34 Levofloxacin (Levaquin) 500 mg DAILY ORAL 01/14/19 09:00 01/21/19 08:59 01/14/19 09:06 Lorazepam (Ativan 2mg/ml 1ml) 2 mg Q4H PRN IV For Anxiety 01/14/19 03:30 01/20/19 03:29 Methylprednisolone Sodium Succinate (Solu-MEDROL) 60 mg EVERY 6 HOURS IV 01/14/19 06:00 02/12/19 17:59 01/14/19 11:08 Morphine Sulfate (Morphine Sulfate) 2 mg Q4H PRN IVP Moderate Pain (Pain Scale 4-6) 01/14/19 03:30 01/20/19 03:29 Morphine Sulfate (Morphine Sulfate) 4 mg Q4H PRN IVP Severe Pain (Pain Scale 7-10) 01/14/19 03:30 01/20/19 03:29 Nitroglycerin (Ntg) 0.4 mg Q5M X 3 DOSES PRN SL Prn Chest Pain 01/14/19 03:30 02/12/19 17:29 Ondansetron HCl (Zofran) 4 mg Q6H PRN IVP Nausea & Vomiting 01/14/19 03:30 02/12/19 03:29 Pantoprazole (Protonix) 40 mg DAILY IV 01/14/19 09:00 02/13/19 08:59 01/14/19 09:06 Promethazine HCl/ Codeine (Phenergan with Codeine) 5 ml Q6H PRN ORAL For Cough 01/14/19 11:00 02/13/19 10:59 01/14/19 11:07 Maria Isabel Batres M.D. Jan 14, 2019 14:43
[2019-01-14 16:00] VITALS: BP 140/74
--- NOTE | 2019-01-14 16:11 | NUR ---
[employer] SI: COPD EXACERBATION T. 97.6 HR 104 RR 20 B/P 117/73 2L O2 SAT @ 98% WBC 19.2 K 3.0 IS: IVF D5NS@ 50ML/HR SOLU MEDROL IV LEVAQUIN PO MED/SURG STATUS
--- NOTE | 2019-01-14 19:25 | NUR ---
HAND-OFF: Report given to KAVITHA Street. Pt in stable condition.
--- NOTE | 2019-01-14 19:25 | NUR ---
NURSE NOTES: Received report from KAVITHA Flores. Patient dozing off, easily wakes up. Bed in low position, locked, side rails up x3, call light within reach. O2 NC on, on continuous oximetry: O2Sat 98%, HR 83. No distress noted at this time. Will continue to monitor.
[2019-01-14 20:00] VITALS: BP 128/74
--- NOTE | 2019-01-14 20:45 | Consultation ---
History of Present Illness General Chief Complaint: Dyspnea/Respdistress Present Illness Allergies: Coded Allergies: No Known Allergies (Unverified , 01/13/19) Medication History Miscellaneous Medications Unable to Obtain Medications (Unable To Obtain Meds), (Reported) Patient History Healthcare decision maker self Resuscitation status Full Code Advanced Directive on File Physical Exam Last 24 Hour Vital Signs Date Time Temp Pulse Resp B/P (MAP) Pulse Ox O2 Delivery O2 Flow Rate FiO2 01/14/19 19:51 78 20 100 Nasal Cannula 2.0 28 01/14/19 19:51 78 20 99 Nasal Cannula 2.0 28 01/14/19 19:45 80 16 99 Nasal Cannula 2.0 28 01/14/19 16:00 98.5 94 18 140/74 (96) 98 01/14/19 15:43 102 24 100 Nasal Cannula 2.0 28 01/14/19 15:33 101 24 98 Nasal Cannula 2.0 28 01/14/19 12:00 97.6 104 20 117/73 (88) 98 01/14/19 11:16 99 22 100 Nasal Cannula 2.0 28 01/14/19 11:07 98 22 97 Nasal Cannula 2.0 28 01/14/19 09:00 Nasal Cannula 2.0 01/14/19 08:00 98.2 105 18 113/74 (87) 96 01/14/19 07:34 98 20 99 Nasal Cannula 2.0 28 01/14/19 07:34 98 22 98 Nasal Cannula 2.0 28 01/14/19 07:25 97 18 98 Nasal Cannula 2.0 01/14/19 03:30 98.5 78 18 117/67 (84) 96 01/14/19 02:39 Nasal Cannula 2.0 28 01/14/19 02:38 Nasal Cannula 2.0 28 01/14/19 00:00 98.3 92 18 121/68 (85) 94 01/14/19 00:00 89 01/14/19 00:00 Nasal Cannula 2.0 01/13/19 23:06 88 18 99 Nasal Cannula 2.0 28 01/13/19 22:56 93 18 96 Nasal Cannula 2.0 28 Intake and Output 01/13/19 01/14/19 19:00 07:00 Intake Total 170 ml 400 ml Balance 170 ml 400 ml Intake Oral 120 ml IV Total 50 ml 400 ml # Voids 2 Laboratory Tests Test 01/14/19 05:43 White Blood Count 19.2 K/UL (4.8-10.8) H Red Blood Count 4.46 M/UL (4.20-5.40) Hemoglobin 13.7 G/DL (12.0-16.0) Hematocrit 40.1 % (37.0-47.0) Mean Corpuscular Volume 90 FL (80-99) Mean Corpuscular Hemoglobin 30.8 PG (27.0-31.0) Mean Corpuscular Hemoglobin Concent 34.2 G/DL (32.0-36.0) Red Cell Distribution Width 11.8 % (11.6-14.8) Platelet Count 283 K/UL (150-450) Mean Platelet Volume 6.1 FL (6.5-10.1) L Neutrophils (%) (Auto) % (45.0-75.0) Lymphocytes (%) (Auto) % (20.0-45.0) Monocytes (%) (Auto) % (1.0-10.0) Eosinophils (%) (Auto) % (0.0-3.0) Basophils (%) (Auto) % (0.0-2.0) Differential Total Cells Counted 100 Neutrophils % (Manual) 95 % (45-75) H Lymphocytes % (Manual) 4 % (20-45) L Monocytes % (Manual) 1 % (1-10) Eosinophils % (Manual) 0 % (0-3) Basophils % (Manual) 0 % (0-2) Band Neutrophils 0 % (0-8) Platelet Estimate Adequate Platelet Morphology Normal Red Blood Cell Morphology Normal Erythrocyte Sedimentation Rate 11 MM/HR (0-20) Sodium Level 139 MMOL/L (136-145) Potassium Level 3.0 MMOL/L (3.5-5.1) L Chloride Level 104 MMOL/L (98-107) Carbon Dioxide Level 24 MMOL/L (21-32) Anion Gap 11 mmol/L (5-15) Blood Urea Nitrogen 12 mg/dL (7-18) Creatinine 0.6 MG/DL (0.55-1.30) Estimat Glomerular Filtration Rate > 60 mL/min (>60) Glucose Level 162 MG/DL (74-106) H Calcium Level 8.7 MG/DL (8.5-10.1) Phosphorus Level 3.0 MG/DL (2.5-4.9) Magnesium Level 2.5 MG/DL (1.8-2.4) H Total Bilirubin 0.3 MG/DL (0.2-1.0) Aspartate Amino Transf (AST/SGOT) 13 U/L (15-37) L Alanine Aminotransferase (ALT/SGPT) 14 U/L (12-78) Alkaline Phosphatase 68 U/L (46-116) C-Reactive Protein, Quantitative 1.2 mg/dL (0.00-0.90) H Total Protein 7.0 G/DL (6.4-8.2) Albumin 3.4 G/DL (3.4-5.0) Globulin 3.6 g/dL Albumin/Globulin Ratio 0.9 (1.0-2.7) L Height (Feet): 5 Height (Inches): 5.00 Weight (Pounds): 125 Medications Current Medications Medications (Trade) Dose Ordered Sig/Lashell Route PRN Reason Start Time Stop Time Status Last Admin Dose Admin Albuterol/ Ipratropium (Albuterol/ Ipratropium) 3 ml Q4H PRN HHN Shortness of Breath 01/14/19 05:30 01/18/19 17:29 Albuterol/ Ipratropium (Albuterol/ Ipratropium) 3 ml Q4HRT HHN 01/14/19 07:00 01/18/19 10:59 01/14/19 19:45 Dextrose (Dextrose 50%) STAT PRN IV Hypoglycemia 01/14/19 03:30 02/12/19 03:29 Dextrose/Sodium Chloride 1,000 ml @ 50 mls/hr Q20H IV 01/14/19 03:30 02/12/19 17:59 01/14/19 14:03 Insulin Aspart (NovoLOG) BEFORE MEALS AND HS SUBQ 01/14/19 06:30 02/12/19 20:59 01/14/19 17:04 Levofloxacin (Levaquin) 500 mg DAILY ORAL 01/14/19 09:00 01/21/19 08:59 01/14/19 09:06 Lorazepam (Ativan 2mg/ml 1ml) 2 mg Q4H PRN IV For Anxiety 01/14/19 03:30 01/20/19 03:29 Methylprednisolone Sodium Succinate (Solu-MEDROL) 60 mg EVERY 6 HOURS IV 01/14/19 06:00 02/12/19 17:59 01/14/19 17:38 Morphine Sulfate (Morphine Sulfate) 2 mg Q4H PRN IVP Moderate Pain (Pain Scale 4-6) 01/14/19 03:30 01/20/19 03:29 Morphine Sulfate (Morphine Sulfate) 4 mg Q4H PRN IVP Severe Pain (Pain Scale 7-10) 01/14/19 03:30 01/20/19 03:29 Nitroglycerin (Ntg) 0.4 mg Q5M X 3 DOSES PRN SL Prn Chest Pain 01/14/19 03:30 02/12/19 17:29 Ondansetron HCl (Zofran) 4 mg Q6H PRN IVP Nausea & Vomiting 01/14/19 03:30 02/12/19 03:29 Pantoprazole (Protonix) 40 mg DAILY IV 01/15/19 09:00 02/14/19 08:59 Promethazine HCl/ Codeine (Phenergan with Codeine) 5 ml Q6H PRN ORAL For Cough 01/14/19 11:00 02/13/19 10:59 01/14/19 11:07 Aye Schmidt MD Jan 14, 2019 20:45
[2019-01-15] VITALS: BP 125/76
[2019-01-15] MEDS: Solu-MEDROL 125mg Inj IV SCH ×5 (00:05→23:52)
[2019-01-15] MEDS: Promethazine/Codeine 5ml UD ORAL PRN ×2 (01:20→11:02)
[2019-01-15] MEDS: Albuterol/Ipratropium 3ml neb HHN SCH ×6 (03:00→23:27)
--- NOTE | 2019-01-15 03:05 | NUR ---
NURSE NOTES: Patient resting comfortably, respirations unlabored. No cough at this time. O2Sat 97%, HR 86, on O2 2L NC.
[2019-01-15 04:00] VITALS: BP 125/90
[2019-01-15] MEDS: NovoLOG Insulin Flexpen SUBQ SCH ×4 (06:14→20:48)
[2019-01-15 06:22] LABS: HEMATOCRIT 38.7 % (37.0-47.0); HEMOGLOBIN 13.2 G/DL (12.0-16.0); MEAN CORPUSCULAR VOLUME 90 FL (80-99); PLATELET COUNT 292 K/UL (150-450); RED BLOOD COUNT 4.28 M/UL (4.20-5.40); RED CELL DISTRIBUTION WIDTH 12.6 % (11.6-14.8)
[2019-01-15 06:32] LABS: ANION GAP 6 mmol/L (5-15); BLOOD UREA NITROGEN 18 mg/dL (7-18); CALCIUM 8.6 MG/DL (8.5-10.1); CARBON DIOXIDE 27 MMOL/L (21-32); CHLORIDE 106 MMOL/L (98-107); CREATININE 0.6 MG/DL (0.55-1.30); POTASSIUM 3.8 MMOL/L (3.5-5.1); SODIUM 139 MMOL/L (136-145)
[2019-01-15 07:14] LABS: WHITE BLOOD COUNT 25.6 K/UL (4.8-10.8)
--- NOTE | 2019-01-15 07:20 | NUR ---
HAND-OFF: Report given to KAVITHA Kingsley. Received phone call from lab notifying of WBC 25.6. Passed onto day shift RN on report.
--- NOTE | 2019-01-15 07:45 | NUR ---
NURSE NOTES: Received report from Yenifer PLUMMER, pt a/a/o x4 seating in bed, eating breakfast with no signs of distress or other issues at this time. IV left AC gauge#20 running D5 1/2NS @50ml/hr. accuchecks BID. pt is in [facility] [place] medium diet, patient in able to tolerated well with no n/v. call light within reach, bed in lowest position. side rales up x2. I will f/u as needed.
[2019-01-15 08:00] VITALS: BP 122/76
[2019-01-15] MEDS: Levofloxacin 500mg tab ORAL SCH (08:44)
[2019-01-15] MEDS: Pantoprazole Inj IV SCH (08:44)
[2019-01-15 12:00] VITALS: BP 125/70
--- NOTE | 2019-01-15 12:56 | General Progress Note ---
Assessment/Plan Problem List: (1) Respiratory distress ICD Codes: R06.03 - Acute respiratory distress SNOMED: 212549089 (2) COPD with exacerbation ICD Codes: J44.1 - Chronic obstructive pulmonary disease with (acute) exacerbation SNOMED: 055819949 (3) Infection ICD Codes: B99.9 - Unspecified infectious disease SNOMED: 40171391 Status: stable, progressing Assessment/Plan: o2 pulm tx abx cbc bmp am dc plan Subjective Constitutional: Reports: weakness Allergies: Coded Allergies: No Known Allergies (Unverified , 01/13/19) All Systems: reviewed and negative except above Subjective o2nc sl anxious Objective Last 24 Hour Vital Signs Date Time Temp Pulse Resp B/P (MAP) Pulse Ox O2 Delivery O2 Flow Rate FiO2 01/15/19 11:59 101 20 98 Nasal Cannula 2.0 01/15/19 11:50 90 20 97 Nasal Cannula 2.0 01/15/19 08:00 98.4 96 16 122/76 (91) 96 96 01/15/19 07:43 89 22 99 Nasal Cannula 2.0 01/15/19 07:42 93 24 99 Nasal Cannula 2.0 01/15/19 07:34 94 20 99 Nasal Cannula 2.0 01/15/19 04:43 70 18 97 01/15/19 04:00 98.4 97 20 125/90 (102) 95 01/15/19 03:13 Nasal Cannula 2.0 01/15/19 03:12 Nasal Cannula 2.0 01/15/19 00:00 98.4 79 17 125/76 (92) 96 01/14/19 23:21 75 20 100 Nasal Cannula 2.0 01/14/19 23:14 75 16 99 Nasal Cannula 2.0 01/14/19 21:00 Nasal Cannula 2.0 01/14/19 20:00 98.3 77 18 128/74 (92) 96 01/14/19 19:51 78 20 100 Nasal Cannula 2.0 01/14/19 19:51 78 20 99 Nasal Cannula 2.0 01/14/19 19:45 80 16 99 Nasal Cannula 2.0 28 01/14/19 16:00 98.5 94 18 140/74 (96) 98 01/14/19 15:43 102 24 100 Nasal Cannula 2.0 19 15:33 101 24 98 Nasal Cannula 2.0 28 Intake and Output 01/14/19 01/15/19 18:59 06:59 Intake Total 840 ml 740 ml Balance 840 ml 740 ml Intake Oral 240 ml 240 ml IV Total 600 ml 500 ml # Voids 2 2 Laboratory Tests 01/15/19 05:15: White Blood Count 25.6*H, Red Blood Count 4.28, Hemoglobin 13.2, Hematocrit 38.7 , Mean Corpuscular Volume 90, Mean Corpuscular Hemoglobin 30.8, Mean Corpuscular Hemoglobin Concent 34.1, Red Cell Distribution Width 12.6, Platelet Count 292, Mean Platelet Volume 5.6L, Neutrophils (%) (Auto) , Lymphocytes (%) ( Auto) , Monocytes (%) (Auto) , Eosinophils (%) (Auto) , Basophils (%) (Auto) , Differential Total Cells Counted 100, Neutrophils % (Manual) 94H, Lymphocytes % (Manual) 4L, Monocytes % (Manual) 2, Eosinophils % (Manual) 0, Basophils % ( Manual) 0, Band Neutrophils 0, Platelet Estimate Adequate, Platelet Morphology Normal, Red Blood Cell Morphology Normal, Sodium Level 139, Potassium Level 3.8 , Chloride Level 106, Carbon Dioxide Level 27, Anion Gap 6, Blood Urea Nitrogen 18, Creatinine 0.6, Estimat Glomerular Filtration Rate > 60, Glucose Level 142H , Calcium Level 8.6 Height (Feet): 5 Height (Inches): 5.00 Weight (Pounds): 125 General Appearance: lethargic EENT: normal ENT inspection Neck: normal alignment Cardiovascular: normal peripheral pulses, normal rate, regular rhythm Respiratory/Chest: chest wall non-tender, lungs clear, normal breath sounds Abdomen: normal bowel sounds, non tender, soft Extremities: normal inspection Edema: no edema noted Arm (L), no edema noted Arm (R), no edema noted Leg (L), no edema noted Leg (R), no edema noted Pedal (L), no edema noted Pedal (R), no edema noted Generalized Neurologic: motor weakness Skin: normal pigmentation, warm/dry Aditya Dickens DO Jan 15, 2019 12:56
--- NOTE | 2019-01-15 13:31 | Infectious Diseases Prog Note ---
Assessment/Plan Assessment/Plan Assessment: COPD exacerbation -01/14 CXR: no acute findings -CXR: 1. No acute cardiothoracic process. Gassy stomach or bowel in the upper abdomen. Afebrile Leukocytosis; increased (on high dose steroids) -u/a no pyuria, +hematuria asthma/COPD tobacco abuse diabetes Plan: -Cont Levaquin #3/5 for COPD exacerbation -01/13 SP Ceftriaxone x1, Azithromycin x1 -f/u cx -Monitor CBC/BMP, temperatures -respiratory supportive treatment -aspiration precautions -Cdiff if diarrhea -BCx x2 Thank you for this consultation. Will continue to follow along with you. Discussed with RN. Subjective Allergies: Coded Allergies: No Known Allergies (Unverified , 01/13/19) Subjective afebrile wbc increased on high dose steroids Objective Vital Signs Last 24 Hour Vital Signs Date Time Temp Pulse Resp B/P (MAP) Pulse Ox O2 Delivery O2 Flow Rate FiO2 01/15/19 11:59 101 20 98 Nasal Cannula 2.0 28 01/15/19 11:50 90 20 97 Nasal Cannula 2.0 28 01/15/19 08:00 98.4 96 16 122/76 (91) 96 96 01/15/19 07:43 89 22 99 Nasal Cannula 2.0 28 01/15/19 07:42 93 24 99 Nasal Cannula 2.0 28 01/15/19 07:34 94 20 99 Nasal Cannula 2.0 28 01/15/19 04:43 70 18 97 01/15/19 04:00 98.4 97 20 125/90 (102) 95 01/15/19 03:13 Nasal Cannula 2.0 28 01/15/19 03:12 Nasal Cannula 2.0 28 01/15/19 00:00 98.4 79 17 125/76 (92) 96 01/14/19 23:21 75 20 100 Nasal Cannula 2.0 28 01/14/19 23:14 75 16 99 Nasal Cannula 2.0 28 01/14/19 21:00 Nasal Cannula 2.0 01/14/19 20:00 98.3 77 18 128/74 (92) 96 01/14/19 19:51 78 20 100 Nasal Cannula 2.0 28 01/14/19 19:51 78 20 99 Nasal Cannula 2.0 28 01/14/19 19:45 80 16 99 Nasal Cannula 2.0 28 01/14/19 16:00 98.5 94 18 140/74 (96) 98 01/14/19 15:43 102 24 100 Nasal Cannula 2.0 28 01/14/19 15:33 101 24 98 Nasal Cannula 2.0 28 Height (Feet): 5 Height (Inches): 5.00 Weight (Pounds): 125 Objective GENERAL: Sleepy in bed, not responding to questions. CARDIOVASCULAR: No murmur. LUNGS: Poor air exchange. ABDOMEN: Bowel sounds distant. EXTREMITIES: No cyanosis or edema. NEUROLOGIC: The patient is flaccid in bed, does not want to follow directions. Laboratory Tests Test 01/15/19 05:15 White Blood Count 25.6 K/UL (4.8-10.8) *H Red Blood Count 4.28 M/UL (4.20-5.40) Hemoglobin 13.2 G/DL (12.0-16.0) Hematocrit 38.7 % (37.0-47.0) Mean Corpuscular Volume 90 FL (80-99) Mean Corpuscular Hemoglobin 30.8 PG (27.0-31.0) Mean Corpuscular Hemoglobin Concent 34.1 G/DL (32.0-36.0) Red Cell Distribution Width 12.6 % (11.6-14.8) Platelet Count 292 K/UL (150-450) Mean Platelet Volume 5.6 FL (6.5-10.1) L Neutrophils (%) (Auto) % (45.0-75.0) Lymphocytes (%) (Auto) % (20.0-45.0) Monocytes (%) (Auto) % (1.0-10.0) Eosinophils (%) (Auto) % (0.0-3.0) Basophils (%) (Auto) % (0.0-2.0) Differential Total Cells Counted 100 Neutrophils % (Manual) 94 % (45-75) H Lymphocytes % (Manual) 4 % (20-45) L Monocytes % (Manual) 2 % (1-10) Eosinophils % (Manual) 0 % (0-3) Basophils % (Manual) 0 % (0-2) Band Neutrophils 0 % (0-8) Platelet Estimate Adequate Platelet Morphology Normal Red Blood Cell Morphology Normal Sodium Level 139 MMOL/L (136-145) Potassium Level 3.8 MMOL/L (3.5-5.1) Chloride Level 106 MMOL/L (98-107) Carbon Dioxide Level 27 MMOL/L (21-32) Anion Gap 6 mmol/L (5-15) Blood Urea Nitrogen 18 mg/dL (7-18) Creatinine 0.6 MG/DL (0.55-1.30) Estimat Glomerular Filtration Rate > 60 mL/min (>60) Glucose Level 142 MG/DL (74-106) H Calcium Level 8.6 MG/DL (8.5-10.1) Current Medications Medications (Trade) Dose Ordered Sig/Lashell Route PRN Reason Start Time Stop Time Status Last Admin Dose Admin Albuterol/ Ipratropium (Albuterol/ Ipratropium) 3 ml Q4H PRN HHN Shortness of Breath 01/14/19 05:30 01/18/19 17:29 Albuterol/ Ipratropium (Albuterol/ Ipratropium) 3 ml Q4HRT HHN 01/14/19 07:00 01/18/19 10:59 01/15/19 11:58 Dextrose (Dextrose 50%) STAT PRN IV Hypoglycemia 01/14/19 03:30 02/12/19 03:29 Dextrose/Sodium Chloride 1,000 ml @ 50 mls/hr Q20H IV 01/14/19 03:30 02/12/19 17:59 01/14/19 14:03 Insulin Aspart (NovoLOG) BEFORE MEALS AND HS SUBQ 01/14/19 06:30 02/12/19 20:59 01/15/19 11:53 Levofloxacin (Levaquin) 500 mg DAILY ORAL 01/14/19 09:00 01/21/19 08:59 01/15/19 08:44 Lorazepam (Ativan 2mg/ml 1ml) 2 mg Q4H PRN IV For Anxiety 01/14/19 03:30 01/20/19 03:29 Methylprednisolone Sodium Succinate (Solu-MEDROL) 60 mg EVERY 6 HOURS IV 01/14/19 06:00 02/12/19 17:59 01/15/19 11:53 Morphine Sulfate (Morphine Sulfate) 2 mg Q4H PRN IVP Moderate Pain (Pain Scale 4-6) 01/14/19 03:30 01/20/19 03:29 Morphine Sulfate (Morphine Sulfate) 4 mg Q4H PRN IVP Severe Pain (Pain Scale 7-10) 01/14/19 03:30 01/20/19 03:29 Nitroglycerin (Ntg) 0.4 mg Q5M X 3 DOSES PRN SL Prn Chest Pain 01/14/19 03:30 02/12/19 17:29 Ondansetron HCl (Zofran) 4 mg Q6H PRN IVP Nausea & Vomiting 01/14/19 03:30 02/12/19 03:29 Pantoprazole (Protonix) 40 mg DAILY IV 01/15/19 09:00 02/14/19 08:59 01/15/19 08:44 Promethazine HCl/ Codeine (Phenergan with Codeine) 5 ml Q6H PRN ORAL For Cough 01/14/19 11:00 02/13/19 10:59 01/15/19 11:02 Maria Isabel Batres M.D. Jan 15, 2019 13:31
[2019-01-15 16:00] VITALS: BP 128/71
--- NOTE | 2019-01-15 17:08 | NUR ---
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 98.7 HR 87 RR 17 B/P 125/70 2L NC O2 SAT @ 98% WBC 25.6 IS: SOLU MEDROL IV PROTONIX IV LEVAQUIN PO IVF D5NS@ 50ML/HR MED/SURG STATUS
--- NOTE | 2019-01-15 17:10 | NUR ---
TALENT RECRUITER NOTES PT WITH DCP HOME WITH NO NEEDS, PENDING CLEARANCE FROM PULM AND ID. NURSE TO FOLLOW UP ON DC.
--- NOTE | 2019-01-15 19:44 | NUR ---
NURSE NOTES: Received report from KAVITHA Kingsley. Patient is AAO x 4, receiving breathing treatment. Excessive productive coughing mentioned during the report noted. No other distress or discomfort noted at this time. Denies pain at this time. IV site on left AC noted intact running fluid as ordered. Bed is placed at the lowest with brake and side rails up x 2 for safety measures. Call light placed within reach and encouraged patient to call whenever assistance is needed. Will continue to monitor and provide care as ordered. Addendum: 01/15/19 at 2118 by Vamsi Cameron RN IV on right AC, not left.
[2019-01-15 20:00] VITALS: BP 144/77
--- NOTE | 2019-01-15 21:31 | NUR ---
NURSE NOTES: Notified MD at 2006 regards to patient having difficulty coughing up/ clearing up mucous even after respiratory treatment. Patient verbalized that she feels suffocated when she was coughing. Awaiting for any new orders to follow up regarding patient's condition. Patient's HR/BP was initially elevated after the breathing treatment HR:98 and BP: 144/77. Patient is currently sleeping, breathing unlabored on 2L O2 via NC, SatO2 98%, and HR:81. Will continue to monitor frequently. Call light is within reach.
[2019-01-15] MEDS: D5 1/2NS 1,000 ML IV SCH (21:40)
--- NOTE | 2019-01-15 21:45 | Pulmonology Progress Note ---
Subjective Allergies: Coded Allergies: No Known Allergies (Unverified , 01/13/19) Objective Last 24 Hour Vital Signs Date Time Temp Pulse Resp B/P (MAP) Pulse Ox O2 Delivery O2 Flow Rate FiO2 01/15/19 21:00 Nasal Cannula 2.0 01/15/19 20:00 98.6 98 17 144/77 (99) 96 98 01/15/19 19:38 97 20 98 Nasal Cannula 2.0 28 01/15/19 19:28 101 22 99 Nasal Cannula 3.0 32 01/15/19 19:28 101 22 99 Nasal Cannula 3.0 32 01/15/19 16:00 98.2 78 16 128/71 (90) 99 78 01/15/19 15:27 87 22 100 Nasal Cannula 2.0 01/15/19 15:20 82 22 96 Nasal Cannula 2.0 28 01/15/19 12:00 98.7 85 17 125/70 (88) 96 96 01/15/19 11:59 101 20 98 Nasal Cannula 2.0 01/15/19 11:50 90 20 97 Nasal Cannula 2.0 01/15/19 09:00 Nasal Cannula 2.0 01/15/19 08:00 98.4 96 16 122/76 (91) 96 96 01/15/19 07:43 89 22 99 Nasal Cannula 2.0 01/15/19 07:42 93 24 99 Nasal Cannula 2.0 01/15/19 07:34 94 20 99 Nasal Cannula 2.0 01/15/19 04:43 70 18 97 01/15/19 04:00 98.4 97 20 125/90 (102) 95 01/15/19 03:13 Nasal Cannula 2.0 01/15/19 03:12 Nasal Cannula 2.0 28 01/15/19 00:00 98.4 79 17 125/76 (92) 96 01/14/19 23:21 75 20 100 Nasal Cannula 2.0 01/14/19 23:14 75 16 99 Nasal Cannula 2.0 28 Intake and Output 01/14/19 01/15/19 19:00 07:00 Intake Total 790 ml 740 ml Balance 790 ml 740 ml Intake Oral 240 ml 240 ml IV Total 550 ml 500 ml # Voids 2 2 Laboratory Tests 01/15/19 05:15: White Blood Count 25.6*H, Red Blood Count 4.28, Hemoglobin 13.2, Hematocrit 38.7 , Mean Corpuscular Volume 90, Mean Corpuscular Hemoglobin 30.8, Mean Corpuscular Hemoglobin Concent 34.1, Red Cell Distribution Width 12.6, Platelet Count 292, Mean Platelet Volume 5.6L, Neutrophils (%) (Auto) , Lymphocytes (%) ( Auto) , Monocytes (%) (Auto) , Eosinophils (%) (Auto) , Basophils (%) (Auto) , Differential Total Cells Counted 100, Neutrophils % (Manual) 94H, Lymphocytes % (Manual) 4L, Monocytes % (Manual) 2, Eosinophils % (Manual) 0, Basophils % ( Manual) 0, Band Neutrophils 0, Platelet Estimate Adequate, Platelet Morphology Normal, Red Blood Cell Morphology Normal, Sodium Level 139, Potassium Level 3.8 , Chloride Level 106, Carbon Dioxide Level 27, Anion Gap 6, Blood Urea Nitrogen 18, Creatinine 0.6, Estimat Glomerular Filtration Rate > 60, Glucose Level 142H , Calcium Level 8.6 Current Medications Medications (Trade) Dose Ordered Sig/Lashell Route PRN Reason Start Time Stop Time Status Last Admin Dose Admin Albuterol/ Ipratropium (Albuterol/ Ipratropium) 3 ml Q4H PRN HHN Shortness of Breath 01/14/19 05:30 01/18/19 17:29 Albuterol/ Ipratropium (Albuterol/ Ipratropium) 3 ml Q4HRT HHN 01/14/19 07:00 01/18/19 10:59 01/15/19 19:28 Dextrose (Dextrose 50%) STAT PRN IV Hypoglycemia 01/14/19 03:30 02/12/19 03:29 Dextrose/Sodium Chloride 1,000 ml @ 50 mls/hr Q20H IV 01/14/19 03:30 02/12/19 17:59 01/15/19 21:40 Insulin Aspart (NovoLOG) BEFORE MEALS AND HS SUBQ 01/14/19 06:30 02/12/19 20:59 01/15/19 20:48 Levofloxacin (Levaquin) 500 mg DAILY ORAL 01/14/19 09:00 01/21/19 08:59 01/15/19 08:44 Lorazepam (Ativan 2mg/ml 1ml) 2 mg Q4H PRN IV For Anxiety 01/14/19 03:30 01/20/19 03:29 Methylprednisolone Sodium Succinate (Solu-MEDROL) 60 mg EVERY 6 HOURS IV 01/14/19 06:00 02/12/19 17:59 01/15/19 17:17 Morphine Sulfate (Morphine Sulfate) 2 mg Q4H PRN IVP Moderate Pain (Pain Scale 4-6) 01/14/19 03:30 01/20/19 03:29 Morphine Sulfate (Morphine Sulfate) 4 mg Q4H PRN IVP Severe Pain (Pain Scale 7-10) 01/14/19 03:30 01/20/19 03:29 Nitroglycerin (Ntg) 0.4 mg Q5M X 3 DOSES PRN SL Prn Chest Pain 01/14/19 03:30 02/12/19 17:29 Ondansetron HCl (Zofran) 4 mg Q6H PRN IVP Nausea & Vomiting 01/14/19 03:30 02/12/19 03:29 Pantoprazole (Protonix) 40 mg DAILY IV 01/15/19 09:00 02/14/19 08:59 01/15/19 08:44 Promethazine HCl/ Codeine (Phenergan with Codeine) 5 ml Q6H PRN ORAL For Cough 01/14/19 11:00 02/13/19 10:59 01/15/19 11:02 Aye Schmidt MD Jan 15, 2019 21:44
[2019-01-16] VITALS: BP 136/79
[2019-01-16] MEDS: Promethazine/Codeine 5ml UD ORAL PRN ×2 (01:51→09:25)
[2019-01-16] MEDS: Albuterol/Ipratropium 3ml neb HHN SCH ×4 (03:41→15:49)
[2019-01-16 04:00] VITALS: BP 136/70
[2019-01-16] MEDS: Solu-MEDROL 125mg Inj IV SCH ×3 (05:59→17:06)
[2019-01-16] MEDS: NovoLOG Insulin Flexpen SUBQ SCH ×3 (06:00→17:07)
--- NOTE | 2019-01-16 06:40 | NUR ---
NURSE NOTES: Previous IV site infiltrated. Attempted to start a new IV on patient. Patient agreed on new IV but was not able to tolerate the procedure at this time. Patient requested the IV to be inserted later during the day. Will endorse the request to daytime nurse.
[2019-01-16 06:46] LABS: HEMATOCRIT 39.4 % (37.0-47.0); HEMOGLOBIN 13.3 G/DL (12.0-16.0); MEAN CORPUSCULAR VOLUME 91 FL (80-99); PLATELET COUNT 282 K/UL (150-450); RED BLOOD COUNT 4.33 M/UL (4.20-5.40); RED CELL DISTRIBUTION WIDTH 11.8 % (11.6-14.8); WHITE BLOOD COUNT 19.3 K/UL (4.8-10.8)
--- NOTE | 2019-01-16 07:35 | NUR ---
HAND-OFF: Report given to KAVITHA Kingsley. Patient in stable condition. RN made aware of IV.
[2019-01-16 07:45] LABS: ANION GAP 7 mmol/L (5-15); BLOOD UREA NITROGEN 15 mg/dL (7-18); CALCIUM 8.5 MG/DL (8.5-10.1); CARBON DIOXIDE 29 MMOL/L (21-32); CHLORIDE 104 MMOL/L (98-107); CREATININE 0.5 MG/DL (0.55-1.30); POTASSIUM 3.2 MMOL/L (3.5-5.1); SODIUM 140 MMOL/L (136-145)
[2019-01-16 08:00] VITALS: BP 134/70
--- NOTE | 2019-01-16 08:00 | NUR ---
NURSE NOTES: Received report from Nisha PLUMMER, pt a/a/o x4 seating in bed, eating breakfast with no signs of distress or other issues at this time. pt on O2L via n/c. no IV access at this time due to IV infiltration, RN will place new IV. accuchecks BID. pt is in [facility] medium diet, patient in able to tolerated well with no n/v. call light within reach, bed in lowest position. side rales up x2. I will f/u as needed.
[2019-01-16] MEDS: Pantoprazole Inj IV SCH (09:25)
[2019-01-16] MEDS: Levofloxacin 500mg tab ORAL SCH (09:25)
[2019-01-16 12:00] VITALS: BP 130/77
--- NOTE | 2019-01-16 14:23 | General Progress Note ---
Assessment/Plan Problem List: (1) Respiratory distress ICD Codes: R06.03 - Acute respiratory distress SNOMED: 082965586 (2) COPD with exacerbation ICD Codes: J44.1 - Chronic obstructive pulmonary disease with (acute) exacerbation SNOMED: 431250248 (3) Infection ICD Codes: B99.9 - Unspecified infectious disease SNOMED: 10130901 Status: stable, progressing Assessment/Plan: o2 pulm tx abx cbc bmp am dc plan Subjective Constitutional: Reports: weakness Allergies: Coded Allergies: No Known Allergies (Unverified , 01/13/19) All Systems: reviewed and negative except above Subjective o2nc sl anxious Objective Last 24 Hour Vital Signs Date Time Temp Pulse Resp B/P (MAP) Pulse Ox O2 Delivery O2 Flow Rate FiO2 01/16/19 11:11 91 18 99 Nasal Cannula 2.0 28 01/16/19 11:01 80 18 98 Nasal Cannula 2.0 28 01/16/19 09:00 Nasal Cannula 2.0 01/16/19 08:00 98.8 91 17 134/70 (91) 97 96 01/16/19 07:46 81 18 98 Nasal Cannula 2.0 28 01/16/19 07:35 83 18 98 Nasal Cannula 2.0 28 01/16/19 07:35 83 18 98 Nasal Cannula 2.0 28 01/16/19 04:00 98.5 83 17 136/70 (92) 97 83 01/16/19 03:51 76 18 99 Nasal Cannula 2.0 28 01/16/19 03:41 73 18 98 Nasal Cannula 2.0 28 01/16/19 00:00 98.4 77 18 136/79 (98) 98 77 01/15/19 23:23 73 18 99 Nasal Cannula 2.0 28 01/15/19 23:13 71 18 99 Nasal Cannula 2.0 28 01/15/19 21:00 Nasal Cannula 2.0 01/15/19 20:00 98.6 98 17 144/77 (99) 96 98 01/15/19 19:38 97 20 98 Nasal Cannula 2.0 28 01/15/19 19:28 101 22 99 Nasal Cannula 3.0 32 01/15/19 19:28 101 22 99 Nasal Cannula 3.0 32 01/15/19 16:00 98.2 78 16 128/71 (90) 99 78 01/15/19 15:27 87 22 100 Nasal Cannula 2.0 28 01/15/19 15:20 82 22 96 Nasal Cannula 2.0 28 Intake and Output 01/15/19 01/16/19 19:00 07:00 Intake Total 1300 ml 840 ml Output Total 200 ml Balance 1100 ml 840 ml Intake Oral 1000 ml 240 ml IV Total 300 ml 600 ml Output Urine Total 200 ml # Voids 1 Laboratory Tests 01/16/19 05:40: White Blood Count 19.3H, Red Blood Count 4.33, Hemoglobin 13.3, Hematocrit 39.4 , Mean Corpuscular Volume 91, Mean Corpuscular Hemoglobin 30.7, Mean Corpuscular Hemoglobin Concent 33.8, Red Cell Distribution Width 11.8, Platelet Count 282, Mean Platelet Volume 5.7L, Neutrophils (%) (Auto) , Lymphocytes (%) ( Auto) , Monocytes (%) (Auto) , Eosinophils (%) (Auto) , Basophils (%) (Auto) , Differential Total Cells Counted 100, Neutrophils % (Manual) 94H, Lymphocytes % (Manual) 5L, Monocytes % (Manual) 1, Eosinophils % (Manual) 0, Basophils % ( Manual) 0, Band Neutrophils 0, Platelet Estimate Adequate, Platelet Morphology Normal, Red Blood Cell Morphology Normal, Sodium Level 140, Potassium Level 3.2L , Chloride Level 104, Carbon Dioxide Level 29, Anion Gap 7, Blood Urea Nitrogen 15, Creatinine 0.5L, Estimat Glomerular Filtration Rate > 60, Glucose Level 128H , Calcium Level 8.5 Height (Feet): 5 Height (Inches): 5.00 Weight (Pounds): 140 General Appearance: lethargic EENT: normal ENT inspection Neck: normal alignment Cardiovascular: normal peripheral pulses, normal rate, regular rhythm Respiratory/Chest: chest wall non-tender, lungs clear, normal breath sounds Abdomen: normal bowel sounds, non tender, soft Extremities: normal inspection Edema: no edema noted Arm (L), no edema noted Arm (R), no edema noted Leg (L), no edema noted Leg (R), no edema noted Pedal (L), no edema noted Pedal (R), no edema noted Generalized Neurologic: responsive, motor weakness Skin: normal pigmentation, warm/dry Aditya Dickens DO Jan 16, 2019 14:23
[2019-01-16] MEDS ORDERED: MEDROL DOSEPAK4 MG ORAL (14:25)
[2019-01-16] MEDS ORDERED: ALBUTEROL SULF8.5 GM INH (14:26)
[2019-01-16] MEDS ORDERED: BACTRIM DS TAB1 EAC1 ORAL (14:26)
[2019-01-16] MEDS: D5 1/2NS 1,000 ML IV SCH (15:30)
[2019-01-16 16:00] VITALS: BP 147/84
--- NOTE | 2019-01-16 19:00 | Cardiology Report ---
APPROVED REPORT EKG Measurement Heart [id number] Sinus rhythm with premature atrial complexes Nonspecific ST abnormality Prolonged QT Abnormal ECG
--- NOTE | 2019-01-16 19:17 | NUR ---
NURSE NOTES: Received order to d/c home today. discharge instructions and belongings list given to patient. IV d/c'd prior to d/c home. also given Rx. pt stated that she will go to her regular pharmacy. pt's friend will provide transportation. pt left the floor with no signs of distress or other issues at this time.
--- NOTE | 2019-01-16 19:55 | Pulmonology Progress Note ---
Subjective Allergies: Coded Allergies: No Known Allergies (Unverified , 01/13/19) Objective Last 24 Hour Vital Signs Date Time Temp Pulse Resp B/P (MAP) Pulse Ox O2 Delivery O2 Flow Rate FiO2 01/16/19 16:00 97.9 86 20 147/84 (105) 98 86 01/16/19 15:59 89 18 99 Nasal Cannula 2.0 28 01/16/19 15:49 89 18 98 Nasal Cannula 2.0 28 01/16/19 12:00 98.6 90 17 130/77 (94) 98 90 01/16/19 11:11 91 18 99 Nasal Cannula 2.0 28 01/16/19 11:01 80 18 98 Nasal Cannula 2.0 28 01/16/19 09:00 Nasal Cannula 2.0 01/16/19 08:00 98.8 91 17 134/70 (91) 97 96 01/16/19 07:46 81 18 98 Nasal Cannula 2.0 28 01/16/19 07:35 83 18 98 Nasal Cannula 2.0 01/16/19 07:35 83 18 98 Nasal Cannula 2.0 28 01/16/19 04:00 98.5 83 17 136/70 (92) 97 83 01/16/19 03:51 76 18 99 Nasal Cannula 2.0 28 01/16/19 03:41 73 18 98 Nasal Cannula 2.0 28 01/16/19 00:00 98.4 77 18 136/79 (98) 98 77 01/15/19 23:23 73 18 99 Nasal Cannula 2.0 28 01/15/19 23:13 71 18 99 Nasal Cannula 2.0 28 01/15/19 21:00 Nasal Cannula 2.0 01/15/19 20:00 98.6 98 17 144/77 (99) 96 98 Intake and Output 01/15/19 01/16/19 18:59 06:59 Intake Total 1250 ml 890 ml Output Total 200 ml Balance 1050 ml 890 ml Intake Oral 1000 ml 240 ml IV Total 250 ml 650 ml Output Urine Total 200 ml # Voids 1 Laboratory Tests 01/16/19 05:40: White Blood Count 19.3H, Red Blood Count 4.33, Hemoglobin 13.3, Hematocrit 39.4 , Mean Corpuscular Volume 91, Mean Corpuscular Hemoglobin 30.7, Mean Corpuscular Hemoglobin Concent 33.8, Red Cell Distribution Width 11.8, Platelet Count 282, Mean Platelet Volume 5.7L, Neutrophils (%) (Auto) , Lymphocytes (%) ( Auto) , Monocytes (%) (Auto) , Eosinophils (%) (Auto) , Basophils (%) (Auto) , Differential Total Cells Counted 100, Neutrophils % (Manual) 94H, Lymphocytes % (Manual) 5L, Monocytes % (Manual) 1, Eosinophils % (Manual) 0, Basophils % ( Manual) 0, Band Neutrophils 0, Platelet Estimate Adequate, Platelet Morphology Normal, Red Blood Cell Morphology Normal, Sodium Level 140, Potassium Level 3.2L , Chloride Level 104, Carbon Dioxide Level 29, Anion Gap 7, Blood Urea Nitrogen 15, Creatinine 0.5L, Estimat Glomerular Filtration Rate > 60, Glucose Level 128H , Calcium Level 8.5 Current Medications Medications (Trade) Dose Ordered Sig/Lashell Route PRN Reason Start Time Stop Time Status Last Admin Dose Admin Albuterol/ Ipratropium (Albuterol/ Ipratropium) 3 ml Q4H PRN HHN Shortness of Breath 01/14/19 05:30 01/18/19 17:29 Albuterol/ Ipratropium (Albuterol/ Ipratropium) 3 ml Q4HRT HHN 01/14/19 07:00 01/18/19 10:59 01/16/19 15:49 Dextrose (Dextrose 50%) STAT PRN IV Hypoglycemia 01/14/19 03:30 02/12/19 03:29 Dextrose/Sodium Chloride 1,000 ml @ 50 mls/hr Q20H IV 01/14/19 03:30 02/12/19 17:59 01/15/19 21:40 Insulin Aspart (NovoLOG) BEFORE MEALS AND HS SUBQ 01/14/19 06:30 02/12/19 20:59 01/16/19 17:07 Levofloxacin (Levaquin) 500 mg DAILY ORAL 01/14/19 09:00 01/21/19 08:59 01/16/19 09:25 Lorazepam (Ativan 2mg/ml 1ml) 2 mg Q4H PRN IV For Anxiety 01/14/19 03:30 01/20/19 03:29 Methylprednisolone Sodium Succinate (Solu-MEDROL) 60 mg EVERY 6 HOURS IV 01/14/19 06:00 02/12/19 17:59 01/16/19 17:06 Morphine Sulfate (Morphine Sulfate) 2 mg Q4H PRN IVP Moderate Pain (Pain Scale 4-6) 01/14/19 03:30 01/20/19 03:29 Morphine Sulfate (Morphine Sulfate) 4 mg Q4H PRN IVP Severe Pain (Pain Scale 7-10) 01/14/19 03:30 01/20/19 03:29 Nitroglycerin (Ntg) 0.4 mg Q5M X 3 DOSES PRN SL Prn Chest Pain 01/14/19 03:30 02/12/19 17:29 Ondansetron HCl (Zofran) 4 mg Q6H PRN IVP Nausea & Vomiting 01/14/19 03:30 02/12/19 03:29 Pantoprazole (Protonix) 40 mg DAILY IV 01/15/19 09:00 02/14/19 08:59 01/16/19 09:25 Promethazine HCl/ Codeine (Phenergan with Codeine) 5 ml Q6H PRN ORAL For Cough 01/14/19 11:00 02/13/19 10:59 01/16/19 09:25 Aye Schmidt MD Jan 16, 2019 19:55
--- NOTE | 2019-01-17 10:38 | Discharge Summary ---
Discharge Summary Discharge Summary _ Who came DATE OF ADMISSION: 01/13/2019 DATE OF DISCHARGE 01/16/2019 DISCHARGED BY: Dr Dickens REASON FOR ADMISSION: 48 years old female with past medical history of asthma, COPD, smoking, presented with acute shortness of breath, which started just prior to arrival by paramedics. Patient was unable to speak full sentences and was using accessory muscles. Patient was taking albuterol inhaler at home without significant relief. Laboratory work-up revealed leukocytosis WBC 15.2. ABG demonstrated acidosis with pH of 7.26, no hypercapnia. Troponin was negative. EKG revealed normal sinus rhythm. Stable electrolytes, renal parameters and LFT. Glucose 147. Urinalysis revealed +4 protein , +3 ketones, no evidence of UTI. Chest x-ray demonstrated no acute cardiopulmonary pathology. In emergency department patient started on BiPAP. Patient received IV steroids, started on the IV fluids. Handheld nebulizing treatment with bronchodilator provided. Patient started on ceftriaxone and azithromycin for possible pneumonia. Reevaluation showed slow improvement with BiPAP. Patient subsequently admitted for further management. CONSULTANTS: pulmonary Dr. Roxana BUENO specialist Dr. Batres [facility] COURSE: Patient admitted. Supplemental oxygen provided to keep pulse oximetry above 90%. Patient initially was on the BiPAP. Pulmonary toilet provided with nebulizing therapy with bronchodilator around the clock and as needed. Patient was started on intravenous steroids with gradual tapering down. Blood culture were negative.. Patient was on empiric antibiotic. Repeated chest x-ray revealed no evidence of cardiopulmonary pathology... Antitussive provided as needed Patient was counseled on smoking cessation Patient declined nicotine patch Blood sugar was managed with sliding scale of insulin. GI prophylaxis provided. Patient was able to be weaned from the BiPAP to nasal cannula. Leukocytosis initially was trending up and then started to trend down , likely due to steroids. Steroids rapidly tapered and changed to oral Medrol Dosepak upon discharge. DVT prophylaxis provided. Patient clinically stabilized and was ready for discharge home on Medrol Dosepak and Bactrim for 5 days. Patient have an inhaler at home. 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 FINAL DIAGNOSES: COPD exacerbation Respiratory distress Smoker Leukocytosis Diabetes mellitus. DISCHARGE MEDICATIONS: See Medication Reconciliation list. DISCHARGE INSTRUCTIONS: Patient was discharged home . Follow up with primary care provider in one week. I have been assigned to dictate discharge summary for this account. I was not involved in the patient's management. Abigail Suárez NP Jan 17, 2019 10:38
== END 2019-01-16 18:45 | disposition home or self-care (01) | DRG 192 ==
LOC: EDBD 05:30 → EMR 05:47 → 2W 06:17 → EDBEDREQ 08:09 → 3E 01-14 03:05
PROC: 5A09357 Assistance with Respiratory Ventilation, Less than 24 Consecutive Hours, Continuous Positive Airway Pressure (ICD-10-PCS; principal; 2019-01-13)
DX: J44.1 Chronic obstructive pulmonary disease with (acute) exacerbation (principal); E11.9 Type 2 diabetes mellitus without complications; R06.03 Acute respiratory distress; F17.200 Nicotine dependence, unspecified, uncomplicated
CPT/HCPCS: 36415; 36600; 71045; 80048; 80053; 81003; 82803; 82962; 83735; 83880; 84100; 84484; 85007; 85025; 85651; 86140; 87040; 93005; 94640; 94660; 94664; 96365; 96368; 96375; 97803; 99291; J1815; J7620; J8499